=== PATIENT | female | born 1945 | race Caucasian/White ===

== ENCOUNTER 2024-05-04 17:59 | Emergency (ER) | payer BC, MEDICARE ==
[2024-05-04] MEDS: Sodium Chloride 0.9% 10 ML Syringe FLUSH PRN (18:20)
[2024-05-04 18:28] LABS: BASOPHILS ABSOLUTE AUTO 0.1 K/mm3 (0.0-0.2); BASOPHILS PERCENT AUTO 0.6 % (0.0-1.0); EOSINOPHILS ABSOLUTE AUTO 0.1 K/mm3 (0.0-0.4); EOSINOPHILS PERCENT AUTO 0.9 % (0.0-6.0); HEMATOCRIT 44.8 % (37.0-47.0); HEMOGLOBIN 14.4 gm/dl (12.0-16.0); IMMATURE GRAN ABSOLUTE AUTO 0.04 K/mm3 (0.00-0.05); IMMATURE GRAN PERCENT AUTO 0.4 % (0.0-0.4); LYMPHOCYTES ABSOLUTE AUTO 2.9 K/mm3 (1.0-4.8); LYMPHOCYTES PERCENT AUTO 28.4 % (24.0-44.0); MEAN CORPUSCULAR HEMOGLOBIN 28.1 pg (28.0-32.0); MEAN CORPUSCULAR HGB CONC 32.1 g/dl (32.0-36.0); MEAN CORPUSCULAR VOLUME 87.5 fl (83.0-99.0); MEAN PLATELET VOLUME 9.9 fl (9.4-12.3); MONOCYTES ABSOLUTE AUTO 0.9 K/mm3 (0.0-0.8); MONOCYTES PERCENT AUTO 8.4 % (0.0-8.0); NEUTROPHILS ABSOLUTE AUTO 6.2 K/mm3 (1.8-7.7); NEUTROPHILS PERCENT AUTO 61.3 % (41.0-71.0); PLATELET COUNT,PLT 307 K/mm3 (150-400); RED BLOOD CELL COUNT 5.12 M/mm3 (4.10-5.30); WHITE BLOOD CELL COUNT,WBC 10.15 K/mm3 (3.9-11.3)
[2024-05-04] MEDS: Aspirin 81 MG Tab.Chew PO ONE (18:34)
[2024-05-04 18:57] LABS: A/G RATIO 0.9 (1-2); ALBUMIN 3.5 g/dl (3.4-5.0); ANION GAP 12.7 (5-15); BILIRUBIN TOTAL 0.6 mg/dL (0.2-1.0); CALCIUM 9.3 mg/dL (8.5-10.1); CREATININE 0.9 mg/dL (0.55-1.02); EST CRCL DRUG DOSING (CG) 52.81 mL/min; MAGNESIUM 1.8 mg/dL (1.8-2.4); POTASSIUM,K 3.7 mEq/L (3.5-5.1); PROTEIN TOTAL,TP 7.6 g/dl (6.4-8.2)
[2024-05-04 20:12] VITALS: PULSE 67
[2024-05-04 20:52] VITALS: BP 158/91
== END 2024-05-04 21:49 | disposition home or self-care (01) ==
LOC: JD.ED 17:59
DX: R07.89 Other chest pain (principal); Z79.899 Other long term (current) drug therapy; Z88.8 Allergy status to other drugs, medicaments and biological substances; Z79.82 Long term (current) use of aspirin
CPT/HCPCS: 36415; 71045; 80053; 83735; 84484; 85025; 93005; 99285; A9270; J3490; 93010; 99283

== ENCOUNTER 2024-05-28 19:12 | Emergency (ER) | payer MEDICARE ==
[2024-05-28 20:02] LABS: BASOPHILS ABSOLUTE AUTO 0.1 K/mm3 (0.0-0.2); BASOPHILS PERCENT AUTO 0.6 % (0.0-1.0); EOSINOPHILS ABSOLUTE AUTO 0.2 K/mm3 (0.0-0.4); EOSINOPHILS PERCENT AUTO 1.9 % (0.0-6.0); HEMATOCRIT 43.5 % (37.0-47.0); IMMATURE GRAN ABSOLUTE AUTO 0.02 K/mm3 (0.00-0.05); IMMATURE GRAN PERCENT AUTO 0.2 % (0.0-0.4); LYMPHOCYTES ABSOLUTE AUTO 1.6 K/mm3 (1.0-4.8); LYMPHOCYTES PERCENT AUTO 19.1 % (24.0-44.0); MEAN CORPUSCULAR HEMOGLOBIN 28.1 pg (28.0-32.0); MEAN CORPUSCULAR HGB CONC 32.2 g/dl (32.0-36.0); MEAN CORPUSCULAR VOLUME 87.3 fl (83.0-99.0); MONOCYTES ABSOLUTE AUTO 0.7 K/mm3 (0.0-0.8); MONOCYTES PERCENT AUTO 8.5 % (0.0-8.0); NEUTROPHILS ABSOLUTE AUTO 5.8 K/mm3 (1.8-7.7); NEUTROPHILS PERCENT AUTO 69.7 % (41.0-71.0); PLATELET COUNT,PLT 264 K/mm3 (150-400); RED BLOOD CELL COUNT 4.98 M/mm3 (4.10-5.30); WHITE BLOOD CELL COUNT,WBC 8.34 K/mm3 (3.9-11.3)
[2024-05-28 20:14] LABS: CORONAVIRUS COVID-19 NAA NEGATIVE (NEGATIVE); INFLUENZA A NAA NEGATIVE (NEGATIVE); RESPIRATORY SYNCYTIAL VIR NAA NEGATIVE (NEGATIVE)
[2024-05-28] MEDS: Sodium Chloride 0.9% 10 ML Syringe FLUSH PRN (20:16)
[2024-05-28] MEDS: Ondansetron 4 MG/2 ML SDV IVPUSH ONE (20:16)
[2024-05-28 20:29] LABS: A/G RATIO 0.8 (1-2); ALBUMIN 3.1 g/dl (3.4-5.0); ANION GAP 11.4 (5-15); BILIRUBIN TOTAL 0.3 mg/dL (0.2-1.0); CALCIUM 8.5 mg/dL (8.5-10.1); EST CRCL DRUG DOSING (CG) 47.53 mL/min; MAGNESIUM 1.9 mg/dL (1.8-2.4); POTASSIUM,K 3.4 mEq/L (3.5-5.1); PROTEIN TOTAL,TP 6.9 g/dl (6.4-8.2)
[2024-05-28] MEDS: guaiFENesin/Dextromethorphan 100-10 MG/5 ML Soln 5 ML Cup PO ONE (20:46)
[2024-05-28 21:43] VITALS: BP 153/93; PULSE 87
== END 2024-05-28 21:43 | disposition home or self-care (01) ==
LOC: JD.ED 19:12
DX: J06.9 Acute upper respiratory infection, unspecified (principal); I10 Essential (primary) hypertension; E78.00 Pure hypercholesterolemia, unspecified; J45.909 Unspecified asthma, uncomplicated; K21.9 Gastro-esophageal reflux disease without esophagitis; Z86.16 Personal history of COVID-19; Z90.49 Acquired absence of other specified parts of digestive tract; Z87.891 Personal history of nicotine dependence; Z79.899 Other long term (current) drug therapy; Z88.8 Allergy status to other drugs, medicaments and biological substances
CPT/HCPCS: 0241U; 36415; 71046; 80053; 83735; 85025; 93005; 96374; 99285; A9270; J2405; J3490

== ENCOUNTER 2024-05-28 22:11 | Emergency (ER) | payer MEDICARE ==
[2024-05-28 22:28] VITALS: BP 146/108; PULSE 105
[2024-05-28] MEDS: Albuterol/Ipratropium 3.0-0.5 MG/3 ML Neb Soln NEB SCH (22:56)
[2024-05-28 23:04] LABS: BASOPHILS ABSOLUTE AUTO 0.1 K/mm3 (0.0-0.2); BASOPHILS PERCENT AUTO 0.6 % (0.0-1.0); EOSINOPHILS ABSOLUTE AUTO 0.1 K/mm3 (0.0-0.4); HEMATOCRIT 42.9 % (37.0-47.0); HEMOGLOBIN 13.8 gm/dl (12.0-16.0); IMMATURE GRAN ABSOLUTE AUTO 0.03 K/mm3 (0.00-0.05); IMMATURE GRAN PERCENT AUTO 0.3 % (0.0-0.4); LYMPHOCYTES ABSOLUTE AUTO 1.7 K/mm3 (1.0-4.8); LYMPHOCYTES PERCENT AUTO 16.4 % (24.0-44.0); MEAN CORPUSCULAR HEMOGLOBIN 28.2 pg (28.0-32.0); MEAN CORPUSCULAR HGB CONC 32.2 g/dl (32.0-36.0); MEAN CORPUSCULAR VOLUME 87.6 fl (83.0-99.0); MONOCYTES ABSOLUTE AUTO 0.7 K/mm3 (0.0-0.8); MONOCYTES PERCENT AUTO 6.5 % (0.0-8.0); NEUTROPHILS ABSOLUTE AUTO 7.7 K/mm3 (1.8-7.7); NEUTROPHILS PERCENT AUTO 75.2 % (41.0-71.0); PLATELET COUNT,PLT 284 K/mm3 (150-400); WHITE BLOOD CELL COUNT,WBC 10.29 K/mm3 (3.9-11.3)
[2024-05-28] MEDS: Sodium Chloride 0.9% 500 ML IV ONE (23:07)
[2024-05-28] MEDS: Sodium Chloride 0.9% 10 ML Syringe FLUSH PRN (23:09)
[2024-05-28 23:32] LABS: ANION GAP 11.6 (5-15); BUN/CREATININE RATIO 18.9 (14-18); CALCIUM 8.7 mg/dL (8.5-10.1); CREATININE 0.9 mg/dL (0.55-1.02); EST CRCL DRUG DOSING (CG) 52.81 mL/min; POTASSIUM,K 3.6 mEq/L (3.5-5.1)
[2024-05-28] MEDS: Iopamidol 755 Mg/ML 100 ML Bottle IVPUSH ONE (23:36)
[2024-05-28] MEDS: Sodium Chloride 0.9% 10 ML Syringe FLUSH ONE (23:36)
[2024-05-28] MEDS: Sodium Chloride 0.9% 100 ML IV SCH (23:36)
[2024-05-29] MEDS: Aspirin 81 MG Tab.Chew PO ONE (00:33)
[2024-05-29] MEDS ORDERED: Heparin Sodium 5,000 Units/ML Vial IVPUSH ONE (00:40)
[2024-05-29] MEDS ORDERED: Heparin Sodium/D5W 25,000 UNITS/500 ML BAG IV SCH (00:45)
[2024-05-29] MEDS: Heparin Sodium 5,000 Units/ML Vial IVPUSH ONE (01:00)
[2024-05-29] MEDS: Heparin Sodium/D5W 25,000 UNITS/500 ML BAG IV SCH (01:01)
== END 2024-05-29 01:40 ==
LOC: JD.ED 22:11
DX: I21.4 Non-ST elevation (NSTEMI) myocardial infarction (principal); I10 Essential (primary) hypertension; E78.00 Pure hypercholesterolemia, unspecified; K21.9 Gastro-esophageal reflux disease without esophagitis; Z79.899 Other long term (current) drug therapy; Z88.8 Allergy status to other drugs, medicaments and biological substances; Z88.3 Allergy status to other anti-infective agents
CPT/HCPCS: 0241U; 36415; 71046; 71275; 80048; 80053; 83735; 83880; 84484; 85025; 93005; 94640; 96374; 99285; A9270; J1644; J2405; J3490; J7030; Q9967; 93010; 96361; 96365; 99284; J7620-GY